=== PATIENT | male | born 1950 | race Caucasian/White ===

== ENCOUNTER 2016-08-09 19:28 | Emergency (ER) | payer SELFPAY ==
[2016-08-09 21:12] LABS: BASO % 0.4 % (0.0-2.0); EOS # 0.2 K/uL (0.0-0.7); EOS % 2.4 % (0.0-4.0); HEMATOCRIT 45.4 % (35.0-51.0); LYMPH # 1.9 K/uL (1.0-4.3); LYMPH % 29.5 % (20.0-40.0); MEAN CELL VOLUME 89.7 fL (80.0-94.0); MEAN CORPUSCULAR HEMOGLOBIN 29.1 pg (27.0-31.0); MEAN CORPUSCULAR HGB CONC 32.4 g/dL (33.0-37.0); MEAN PLATELET VOLUME 9.1 fL (7.2-11.7); MONO # 0.9 K/uL (0.0-0.8); MONO % 13.5 % (0.0-10.0); RED CELL DISTRIBUTION WIDTH 14.7 % (11.5-14.5); WHITE BLOOD COUNT 6.6 K/uL (4.8-10.8)
[2016-08-09 21:24] LABS: CHLORIDE 101 mmol/L (98-107); SODIUM 139 mmol/L (132-148)
[2016-08-09 21:25] LABS: POTASSIUM 4.4 mmol/L (3.6-5.2)
[2016-08-09 21:27] LABS: ALB/GLOB RATIO 1.2 (1.0-2.1); ALKALINE PHOSPHATASE 50 U/L (38-126); AST/SGOT 29 U/L (17-59); BILIRUBIN,TOTAL 0.5 mg/dL (0.2-1.3); BLOOD UREA NITROGEN 18 mg/dL (9-20); CARBON DIOXIDE 25 mmol/L (22-30); GFR AFRICAN-AMERICAN > 60; TOTAL PROTEIN 7.2 g/dL (6.3-8.3)
[2016-08-09 21:28] LABS: ALT/SGPT 28 U/L (21-72); CALCIUM 8.7 mg/dl (8.6-10.4); GLUCOSE,RANDOM 90 mg/dL (75-110)
--- NOTE | 2016-08-09 21:30 | C.PDOC ---
History Of Present Illness 66 year old patient, with a past medical history of hiatal hernia, hypertension , anxiety, and sleep apnea, presents to the emergency department complaining of chest pain for the past few days. Patient states the pain is lateral to the anterior chest wall. Patient denies cough, pain on taking a deep breath, sweats , light headedness, palpations, numbness, weakness, nausea, vomiting, or abdominal pain. Time Seen by Provider: 08/09/16 20:48 Chief Complaint (Nursing): Chest Pain History Per: Patient History/Exam Limitations: no limitations Onset/Duration Of Symptoms: Days (few) Current Symptoms Are (Timing): Still Present Context: Other Severity: Mild Pain Scale Rating Of: 3 Quality: "Pain" Exacerbating Factors: None Alleviating Factors: None Recent travel outside of the [place]: No Past Medical History Reviewed: Historical Data, Nursing Documentation, Vital Signs Vital Signs: Last Vital Signs Temp 98.2 F 08/09/16 19:44 Pulse 60 08/09/16 20:26 Resp 20 08/09/16 19:44 BP 135/86 08/09/16 19:44 Pulse Ox 95 08/09/16 21:47 - Medical History PMH: Anxiety, Hiatal Hernia, HTN, Sleep Apnea Family History: States: Unknown Family Hx - Social History Hx Tobacco Use: No Hx Alcohol Use: No Hx Substance Use: No - Immunization History Hx Tetanus Toxoid Vaccination: No Hx Influenza Vaccination: No Hx Pneumococcal Vaccination: No Review Of Systems Except As Marked, All Systems Reviewed And Found Negative. Constitutional: Negative for: Sweats Cardiovascular: Positive for: Chest Pain. Negative for: Palpitations, Light Headedness Respiratory: Negative for: Cough, Shortness of Breath Gastrointestinal: Negative for: Nausea, Vomiting, Abdominal Pain Neurological: Negative for: Weakness, Numbness Physical Exam - Physical Exam Appears: Non-toxic, No Acute Distress Skin: Warm, Dry Head: Atraumatic, Normacephalic Eye(s): bilateral: Normal Inspection, EOMI Neck: Normal ROM, Supple Chest: Symmetrical, Tenderness (to chest wall on palpation) Cardiovascular: Rhythm Regular Respiratory: Normal Breath Sounds, No Rales, No Rhonchi, No Wheezing Gastrointestinal/Abdominal: Soft, No Tenderness Back: Normal Inspection, No CVA Tenderness Extremity: Normal ROM Neurological/Psych: Oriented x3, Normal Speech, Normal Cognition Gait: Steady ED Course And Treatment - Laboratory Results Result Diagrams: 08/09/16 21:10 08/09/16 21:10 ECG: Interpreted By Me, Viewed By Me ECG Rhythm: Sinus Bradycardia ECG Interpretation: No Acute Changes Interpretation Of ECG: normal tracings Rate From EC (bpm) O2 Sat by Pulse Oximetry: 95 (RA) Pulse Ox Interpretation: Normal - Radiology CXR: Interpreted by Me, Viewed By Me CXR Interpretation: Yes: No Acute Disease, Other (normal CXR). No: Infiltrates , Cardiomegaly Progress Note: Plan: -EKG. -Labs. -Chest XR. -Toradol Disposition Counseled Patient/Family Regarding: Diagnosis - Disposition Referrals: [facility] at [facility] [Outside] Disposition: HOME/ ROUTINE Disposition Time: 21:48 Condition: STABLE Prescriptions: Naproxen [Naprosyn Tab] 375 mg PO TIDPC #20 tab Instructions: Chest Wall Pain (ED) Forms: Gen Discharge Inst Pashto Print Language: PORTUGUESE - POA Present On Arrival: None - Clinical Impression Clinical Impression: Chest wall pain - Scribe Statement The provider has reviewed the documentation as recorded by the Scribtevin Landa Provider Attestation: All medical record entries made by the Scribe were at my direction and personally dictated by me. I have reviewed the chart and agree that the record accurately reflects my personal performance of the history, physical exam, medical decision making, and the department course for this patient. I have also personally directed, reviewed, and agree with the discharge instructions and disposition.
[2016-08-09 22:09] VITALS: BP 130/80; PULSE 80; RESP 14; TEMP 98; O2SAT 98
--- NOTE | 2016-08-10 11:09 | RAD ---
HISTORY: chest pain COMPARISON: Comparison chest dated 05/15/16 TECHNIQUE: Chest PA and lateral FINDINGS: LUNGS: Mild bibasilar atelectasis left greater than right. Minimal left apical pleural thickening. . PLEURA: No significant pleural effusion identified. No pneumothorax apparent. Mild left apical CARDIOVASCULAR: Heart size normal. OSSEOUS STRUCTURES: Re- demonstrated is a small sclerotic a elliptical shaped density within the left posterior 4th rib unchanged. VISUALIZED UPPER ABDOMEN: Normal. OTHER FINDINGS: None. IMPRESSION: Mild left basilar atelectasis left greater than right
--- NOTE | 2016-08-12 07:59 | CARD ---
APPROVED REPORT EKG Measurement Heart [id number] CT [id number] <Conclusion> Sinus bradycardia Possible Left atrial enlargement Borderline ECG
== END 2016-08-09 22:09 | disposition home or self-care (01) ==
LOC: C.ER 19:28
DX: R07.89 Other chest pain (principal)
CPT/HCPCS: 71020; 80053; 84484; 85025; 85378; 96374; 99283; J1885

== ENCOUNTER 2017-02-08 06:33 | Emergency (ER) | payer MEDICAID ==
--- NOTE | 2017-02-08 07:33 | C.PDOC ---
History Of Present Illness Patient is a 66 year old male, with past medical history of borderline diabetes , presents to Emergency Department for evaluation of sudden onset of bilateral hip pain last night. Pt states that he was walking outside with his yesterday, when he suddenly felt a sharp pain in his hips. Denies any heavy lifting, significant exertion, bending, twisting, injury, or trauma. Pt notes that pain has been constant, dull, and non-radiating since last night. Notes that pain is 6/10 when sitting, and 10/10 when moving, or standing. Otherwise, patient denies any fever, chills, nausea, vomiting, diarrhea, abdominal pain, dysuria, hematuria, bowel/urine incontinence, or any other associated symptoms at this time. Pt denies history of kidney stones in the past. 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 Time Seen by Provider: 02/08/17 07:08 Chief Complaint (Nursing): Male Genitourinary History Per: Patient History/Exam Limitations: no limitations Onset/Duration Of Symptoms: Days (1), Sudden Onset, Persistent Current Symptoms Are (Timing): Still Present Quality Of Discomfort: Dull Associated Symptoms: denies: Fever, Chills, Nausea, Vomiting, Diarrhea, Loss Of Appetite, Chest Pain, Constipation, Urinary Symptoms Alleviating Factors: None Recent travel outside of the [place]: No Additional History Per: Patient Past Medical History Reviewed: Historical Data, Nursing Documentation, Vital Signs Vital Signs: Last Vital Signs Temp 97.5 F L 02/08/17 10:24 Pulse 64 02/08/17 10:24 Resp 18 02/08/17 10:24 BP 96/53 L 02/08/17 10:24 Pulse Ox 94 L 02/08/17 10:24 - Medical History PMH: Anxiety, Hiatal Hernia, HTN, Sleep Apnea Family History: States: Unknown Family Hx - Social History Hx Tobacco Use: No Hx Alcohol Use: No Hx Substance Use: No - Immunization History Hx Tetanus Toxoid Vaccination: No Hx Influenza Vaccination: No Hx Pneumococcal Vaccination: No Review Of Systems Except As Marked, All Systems Reviewed And Found Negative. Constitutional: Negative for: Fever, Chills Cardiovascular: Negative for: Chest Pain, Palpitations Respiratory: Negative for: Cough, Shortness of Breath Gastrointestinal: Negative for: Nausea, Vomiting, Abdominal Pain, Diarrhea, Constipation Genitourinary: Negative for: Dysuria, Frequency, Incontinence, Hematuria, Penile Discharge Musculoskeletal: Positive for: Other (bilateral hip pain). Negative for: Neck Pain Skin: Negative for: Rash, Bruising Neurological: Negative for: Weakness, Numbness, Headache, Dizziness Physical Exam - Physical Exam Appears: Non-toxic, No Acute Distress, Other (Visibly in pain when moving or standing) Skin: Normal Color, Warm, Dry, No Rash Head: Atraumatic, Normacephalic Eye(s): bilateral: Normal Inspection, EOMI Oral Mucosa: Moist Neck: Normal ROM, Supple Chest: Symmetrical Cardiovascular: Rhythm Regular, No Murmur Respiratory: No Accessory Muscle Use, No Rales, No Rhonchi, No Wheezing Gastrointestinal/Abdominal: Soft, No Tenderness, Other (obese abdomen) Back: No CVA Tenderness, No Vertebral Tenderness, No Paraspinal Tenderness Extremity: Normal ROM, No Tenderness, No Pedal Edema, Capillary Refill (<2 sec.) , No Deformity Extremity: Bilateral: Atraumatic, Hips Non-Tender, Normal Color And Temperature , Pelvis-Stable Neurological/Psych: Oriented x3, Normal Speech, Normal Cognition Gait: Steady ED Course And Treatment O2 Sat by Pulse Oximetry: 98 (on RA) Pulse Ox Interpretation: Normal Medical Decision Making Medical Decision Making: Patient was given Motrin, Tylenol, and Valium. On reassessment, patient reports feeling better. No significant distress. Still with some pain , but sleeping comfortably. Disposition Counseled Patient/Family Regarding: Diagnosis, Need For Followup, Rx Given - Disposition Disposition: HOME/ ROUTINE Disposition Time: 11:01 Condition: STABLE Additional Instructions: Rest, take pain meds 3 times a day. Follow up with your doctor, return to the Emergency Department with any further concerns. Prescriptions: diaZEpam [Valium] 5 mg PO TID #15 tab Ibuprofen [Motrin] 600 mg PO TID #15 tab traMADol/Acetaminophen [Ultracet 37.5/325 mg] 1 tab PO TID PRN #15 tab PRN Reason: pain Instructions: Acute Low Back Pain (ED) Forms: [facility] (Hungarian) - POA Present On Arrival: None - Clinical Impression Clinical Impression: Musculoskeletal back pain - Scribe Statement The provider has reviewed the documentation as recorded by the Scribe Deedee Landa All medical record entries made by the Scribe were at my direction and personally dictated by me. I have reviewed the chart and agree that the record accurately reflects my personal performance of the history, physical exam, medical decision making, and the department course for this patient. I have also personally directed, reviewed, and agree with the discharge instructions and disposition.
[2017-02-08 09:52] LABS: URINE BILIRUBIN NEGATIVE (NEGATIVE); URINE BLOOD NEGATIVE (NEGATIVE); URINE COLOR Yellow (YELLOW); URINE GLUCOSE (UA) NORMAL (Normal); URINE KETONE NEGATIVE (NEGATIVE); URINE LEUKOCYTE ESTERASE NEG Leu/uL (Negative); URINE PROTEIN NEGATIVE (NEGATIVE); URINE UROBILINOGEN NORMAL mg/dL (0.2-1.0)
[2017-02-08 10:25] VITALS: BP 96/53; PULSE 64; RESP 18; TEMP 97.5
[2017-02-08 11:04] VITALS: O2SAT 98
== END 2017-02-08 11:24 | disposition home or self-care (01) ==
LOC: C.ER 06:33
DX: M54.9 Dorsalgia, unspecified (principal); I10 Essential (primary) hypertension

== ENCOUNTER 2017-09-13 00:57 | Emergency (ER) | payer SELFPAY ==
--- NOTE | 2017-09-13 01:18 | C.PDOC ---
History Of Present Illness 67yo male, presents to ED for evaluation of right sided abdominal pain since 1300 yesterday. Patient states the pain was initially in his mid abdomen and now radiated to his right abdomen. He denies any associated nausea, vomiting, diarrhea. He reports a tactile fever but denies any chills, chest pain, shortness of breath. Patient did not take any medication for his symptoms. He has no other medical complaints. Time Seen by Provider: 09/13/17 01:17 Chief Complaint (Nursing): Abdominal Pain History Per: Patient History/Exam Limitations: no limitations Onset/Duration Of Symptoms: Hrs Current Symptoms Are (Timing): Still Present Location Of Pain/Discomfort: RUQ Quality Of Discomfort: "Pain" Associated Symptoms: Fever. denies: Chills, Nausea, Vomiting, Diarrhea, Back Pain, Urinary Symptoms Past Medical History Reviewed: Historical Data, Nursing Documentation, Vital Signs Vital Signs: Last Vital Signs Temp 100.1 F H 09/13/17 04:15 Pulse 105 H 09/13/17 03:55 Resp 20 09/13/17 03:55 BP 151/91 H 09/13/17 03:55 Pulse Ox 95 09/13/17 03:55 - Medical History PMH: Anxiety, Hiatal Hernia, HTN, Sleep Apnea Denies: Chronic Kidney Disease Surgical History: No Surg Hx Family History: States: No Known Family Hx, Unknown Family Hx - Social History Hx Tobacco Use: No Hx Alcohol Use: No Hx Substance Use: No - Immunization History Hx Tetanus Toxoid Vaccination: No Hx Influenza Vaccination: No Hx Pneumococcal Vaccination: No Review Of Systems Except As Marked, All Systems Reviewed And Found Negative. Constitutional: Positive for: Fever (tactile) Cardiovascular: Negative for: Chest Pain Respiratory: Negative for: Shortness of Breath Gastrointestinal: Positive for: Abdominal Pain. Negative for: Nausea, Vomiting , Diarrhea Physical Exam - Physical Exam Appears: Non-toxic, No Acute Distress Skin: Normal Color, Warm, Dry Head: Atraumatic, Normacephalic Eye(s): bilateral: PERRL, EOMI, Other (anicteric sclera, pink conjunctiva) Nose: Normal Oral Mucosa: Moist Neck: Normal ROM, Supple Chest: Symmetrical Cardiovascular: Rhythm Regular Respiratory: Normal Breath Sounds Gastrointestinal/Abdominal: Soft, Tenderness (right mid-abdomne, under right costal margin. (-) Scott's sign), No Mass, No Guarding, No Rebound Back: Normal Inspection Extremity: Normal ROM, No Pedal Edema Pulses: Left Dorsalis Pedis: Normal, Right Dorsalis Pedis: Normal Neurological/Psych: Oriented x3 ED Course And Treatment - Laboratory Results Result Diagrams: 09/13/17 01:35 09/13/17 01:35 O2 Sat by Pulse Oximetry: 94 Medical Decision Making Medical Decision Making: Impression: Abdominal pain Plan: -- US Galbladder -- Labs -- Morphine 4mg IV -- IV Fluids Time: 0220 Labs reviewed and with normal white count with slight left shift. Electrolyte levels within normal limits, mild hyperglycemia noted. Time: 0331 US Galbladder FINDINGS: Artifacts: Limited due to bowel gas shadowing. Limited due to shadowing from the ribs. Liver: The liver measures 14.5 cm. Limited evaluation of the liver due to shadowing. There is hepatic pedal flow in the portal vein. Gallbladder: Partially contracted gallbladder the 2 mm gallbladder wall. No gallstones.There was no right upper quadrant tenderness during the sonographic examination. Correlation with patient's pain medication status is recommended. Common bile duct: Normal common bile duct measuring 3 mm. Pancreas: The pancreas is not well-seen. Echogenic pancreas. Right kidney: The right kidney measures 15.2 x 6.4 x 6.2 cm. No stones. No hydronephrosis. Aorta: The proximal aorta measures 2.5 cm. Limited evaluation due to shadowing. Inferior vena cava: IVC is seen. IMPRESSION: No acute findings. Time: 034 [employer] legal recruiter used and results explained to patient. Patient stable for discharge home, will be given prescription for pantoprazole and instructions to follow up with his PCP. Disposition - Disposition Referrals: [facility] at [facility] [Outside] Disposition: HOME/ ROUTINE Disposition Time: 05:12 Condition: GOOD Prescriptions: Pantoprazole Sodium [Protonix] 40 mg PO DAILY #14 ect Instructions: Acid Reflux (Gastroesophageal Reflux Disease), Adult (DC), Acute Abdomen (Belly Pain), Adult (DC) Forms: [facility] (Croatian) Print Language: ITALIAN - Clinical Impression Clinical Impression: Abdominal pain - Scribe Statement The provider has reviewed the documentation as recorded by the Scribe (Casandra Zarate) Provider Attestation: All medical record entries made by the Scribe were at my direction and personally dictated by me. I have reviewed the chart and agree that the record accurately reflects my personal performance of the history, physical exam, medical decision making, and the department course for this patient. I have also personally directed, reviewed, and agree with the discharge instructions and disposition.
[2017-09-13] MEDS ORDERED: Sodium Chloride 0.9% 1,000 ML IV ONE (01:20)
[2017-09-13] MEDS ORDERED: Morphine 4 MG/ML VIAL ONE (01:33)
[2017-09-13] MEDS ORDERED: Sodium Chloride 0.9% 1,000 ML ONE (01:33)
[2017-09-13 01:40] LABS: BASO % 0.4 % (0.0-2.0); EOS # 0.2 K/uL (0.0-0.7); EOS % 1.6 % (0.0-4.0); HEMOGLOBIN 15.9 g/dL (12.0-18.0); LYMPH # 0.9 K/uL (1.0-4.3); LYMPH % 9.6 % (20.0-40.0); MEAN CELL VOLUME 90.9 fL (80.0-94.0); MEAN CORPUSCULAR HEMOGLOBIN 30.6 pg (27.0-31.0); MEAN CORPUSCULAR HGB CONC 33.7 g/dL (33.0-37.0); MEAN PLATELET VOLUME 9.3 fL (7.2-11.7); MONO # 0.8 K/uL (0.0-0.8); MONO % 7.7 % (0.0-10.0); NEUT # 7.9 K/uL (1.8-7.0); NEUT % 80.7 % (50.0-75.0); PLATELET COUNT 175 K/uL (130-400); RBC 5.21 Mil/uL (4.40-5.90); RED CELL DISTRIBUTION WIDTH 13.9 % (11.5-14.5); WHITE BLOOD COUNT 9.8 K/uL (4.8-10.8)
[2017-09-13 01:57] LABS: ALB/GLOB RATIO 1.1 (1.0-2.1); ALBUMIN 4.4 g/dL (3.5-5.0); CALCIUM 9.3 mg/dl (8.6-10.4); GFR AFRICAN-AMERICAN > 60; GFR NON-AFRICAN AMERICAN > 60; LIPASE 51 U/L (23-300)
[2017-09-13 02:20] LABS: ALT/SGPT 31 U/L (21-72); AST/SGOT 33 U/L (17-59); BLOOD UREA NITROGEN 20 mg/dL (9-20)
[2017-09-13 02:37] LABS: SQUAMOUS EPITHIAL < 1 /hpf (0-5); URINE BILIRUBIN NEGATIVE (NEGATIVE); URINE BLOOD NEGATIVE (NEGATIVE); URINE CLARITY Clear (Clear); URINE COLOR Yellow (YELLOW); URINE GLUCOSE (UA) NORMAL (Normal); URINE LEUKOCYTE ESTERASE NEG Leu/uL (Negative); URINE PROTEIN NEGATIVE (NEGATIVE); URINE UROBILINOGEN NORMAL mg/dL (0.2-1.0)
[2017-09-13 03:08] LABS: BANDS 1 % (0-2); LYMPHOCYTE 11 % (20-40); MONOCYTE 4 % (0-10); NEUTROPHIL 83 % (50-75); PLATELET ESTIMATE NORMAL (NORMAL); REACTIVE LYMPHOCYTES 1 % (0-0); TOTAL CELLS COUNTED 100
[2017-09-13 03:09] LABS: TOXIC GRANULATION PRESENT
--- NOTE | 2017-09-13 03:32 | US ---
EXAM: US Abdomen Limited, Right Upper Quadrant CLINICAL HISTORY: 67 years old, male; Pain; Abdominal pain; Epigastric TECHNIQUE: Real-time ultrasound of the right upper quadrant with image documentation. COMPARISON: No relevant prior studies available. FINDINGS: Artifacts: Limited due to bowel gas shadowing. Limited due to shadowing from the ribs. Liver: The liver measures 14.5 cm. Limited evaluation of the liver due to shadowing. There is hepatic pedal flow in the portal vein. Gallbladder: Partially contracted gallbladder the 2 mm gallbladder wall. No gallstones.There was no right upper quadrant tenderness during the sonographic examination. Correlation with patient's pain medication status is recommended. Common bile duct: Normal common bile duct measuring 3 mm. Pancreas: The pancreas is not well-seen. Echogenic pancreas. Right kidney: The right kidney measures 15.2 x 6.4 x 6.2 cm. No stones. No hydronephrosis. Aorta: The proximal aorta measures 2.5 cm. Limited evaluation due to shadowing. Inferior vena cava: IVC is seen. IMPRESSION: No acute findings.
[2017-09-13 04:08] VITALS: BP 151/91; PULSE 105; RESP 20; TEMP 100.1
[2017-09-13 05:13] VITALS: O2SAT 94
== END 2017-09-13 04:32 | disposition home or self-care (01) ==
LOC: C.ER 00:57
DX: R10.13 Epigastric pain (principal); I10 Essential (primary) hypertension
CPT/HCPCS: 76705; 80053; 81001; 83690; 85025; 96361; 96374; 96375; 99285; C9113; J2270; J7040

== ENCOUNTER 2018-04-10 19:26 | Emergency (ER) | payer SELFPAY ==
[2018-04-10 19:39] VITALS: RESP 18; O2SAT 95
--- NOTE | 2018-04-10 19:48 | C.PDOC ---
History Of Present Illness 67 year old male with a PMHx hiatal hernia, htn, anxiety presents to the emergency department with complaints of abdominal which started 1 hour prior. Patient describes the pain as sharp and stabbing, LLQ, without radiation. No trauma. No RLQ pain. First time occurence. No abnl BM, last BM was yesterday. He believes he might have excess "GAS" in his stomach. He denies nausea, vomiting, constipation, diarrhea, and dysuria. Time Seen by Provider: 04/10/18 19:34 Chief Complaint (Nursing): Abdominal Pain History Per: Patient History/Exam Limitations: no limitations Onset/Duration Of Symptoms: Hrs (1) Current Symptoms Are (Timing): Still Present Location Of Pain/Discomfort: Other (umbilical) Quality Of Discomfort: Sharp, Stabbing, "Pain" Associated Symptoms: denies: Nausea, Vomiting, Diarrhea, Back Pain, Chest Pain, Constipation, Urinary Symptoms Past Medical History Reviewed: Historical Data, Nursing Documentation, Vital Signs Vital Signs: Last Vital Signs Temp 98.3 F 04/10/18 19:34 Pulse Resp 18 04/10/18 19:34 BP 179/98 H 04/10/18 19:34 Pulse Ox 95 04/10/18 19:34 - Medical History PMH: Anxiety, Hiatal Hernia, HTN, Sleep Apnea Denies: Chronic Kidney Disease Surgical History: No Surg Hx Family History: States: No Known Family Hx - Social History Hx Tobacco Use: No Hx Alcohol Use: No Hx Substance Use: No - Immunization History Hx Tetanus Toxoid Vaccination: No Hx Influenza Vaccination: No Hx Pneumococcal Vaccination: No Review Of Systems Except As Marked, All Systems Reviewed And Found Negative. Constitutional: Negative for: Fever, Chills, Malaise, Weight loss Eyes: Negative for: Pain ENT: Negative for: Ear Pain, Ear Discharge, Nose Pain, Nose Congestion, Mouth Pain, Mouth Swelling Cardiovascular: Negative for: Chest Pain, Palpitations Respiratory: Negative for: Cough, SOB with Excertion, Pleuritic Pain Gastrointestinal: Positive for: Abdominal Pain. Negative for: Nausea, Vomiting, Diarrhea, Constipation, Melena, Hematochezia, Hematemesis Genitourinary: Negative for: Dysuria Musculoskeletal: Negative for: Arm Pain, Back Pain Skin: Negative for: Rash Neurological: Negative for: Weakness, Numbness, Headache Psych: Negative for: Anxiety Physical Exam - Physical Exam Appears: Non-toxic, In Acute Distress Skin: Warm, Dry Head: Atraumatic, Normacephalic Eye(s): bilateral: Normal Inspection, PERRL, EOMI Nose: Normal Oral Mucosa: Moist Tongue: Normal Appearing Lips: Normal Appearing Gingiva: Normal Appearing Throat: Normal, No Erythema, No Exudate, No Drooling Neck: Normal, No Midline Cervical Tenderness, Supple, Other (no meningeal signs) Chest: Symmetrical, No Tenderness Cardiovascular: Rhythm Regular, No Murmur Respiratory: No Rales, No Rhonchi, No Wheezing Gastrointestinal/Abdominal: Soft, Tenderness (umbilical), No Guarding, No Rebound Back: Normal Inspection, No CVA Tenderness Extremity: Normal ROM Neurological/Psych: Oriented x3, Normal Speech, Normal Cognition ED Course And Treatment - Laboratory Results Result Diagrams: 04/10/18 20:18 04/10/18 20:18 O2 Sat by Pulse Oximetry: 95 (RA) Pulse Ox Interpretation: Normal Medical Decision Making Medical Decision Makin67 year old male w/ hx of hiatal hernia, anxiety and HTN p/w abdominal pain. LLQ, no peritoneal signs w/ out CVAT. NO urinary complaints or rashes. Given abd pain, will seek CT for ?Diverticulitis. No N/V. No CP or SOB. Plan: CT Abdomen and Pelvis CMP Lipase CBC Glucose POC Morphine 4mg IVP Maalox 30ml PO NaCl IV Fluids Urinalysis 2150: Per [place]: Acute Appdx: Appreciate consult w/ vice president global advertising sales: to see pt. Pt NPO [id number] appreciate ocnuslt w/ advanced manufacturing vice president and Dr. Lemus directly: Clear for d/c home, no indication for admission at this time. Pt can return to ED if pain returns or follow up in clinic. Given CT findings i recommended pt stay: however pt seeks to sign out AMA. I informed patient that he could potentially or be permanently disabled given appendicits. Pt notes that he will return if the pain worsens and that given the pain has resolved currently he feels he is safe to go home and will return if his appendix ruptures. I endorsed to patient that regardless of current pain status he could still or be permanently disabled if he decided to leave and the appendix ruptured. He notes that he feels safe to go home, understands the risks, and will return if need be. Given good capacity to understand risks of and or disability due to appendicits. Will rx w/ abx outpt and reccommend pt f/u and return to ED should he change his mind. Disposition - Disposition Referrals: [employer] [facility] [Outside] [facility] at [facility] [Outside] Hang Lemus MD [Staff Provider] - Disposition: AGAINST MEDICAL ADVICE Disposition Time: 23:15 Condition: GUARDED Additional Instructions: RETURN TO THIS ED WHEN YOU WANT TREATMENT. DO NOT DELAY Prescriptions: RX: Ciprofloxacin [Cipro] 500 mg PO BID #28 tab Metronidazole [Flagyl] 500 mg PO TID 14 Days tablet Instructions: Appendicitis in Adults Forms: [employer] [facility] (Danish) - Clinical Impression Clinical Impression: Appendicitis - Scribe Statement The provider has reviewed the documentation as recorded by the Scribe (Jossue Bellamy) Provider Attestation: All medical record entries made by the Scribe were at my direction and personally dictated by me. I have reviewed the chart and agree that the record accurately reflects my personal performance of the history, physical exam, medical decision making, and the department course for this patient. I have also personally directed, reviewed, and agree with the discharge instructions and disposition.
[2018-04-10] MEDS ORDERED: Sodium Chloride 0.9% 1,000 ML IV SCH (20:15)
[2018-04-10] MEDS ORDERED: Sodium Chloride 0.9% 1,000 ML ONE (20:20)
[2018-04-10] MEDS ORDERED: Morphine 4 MG/ML VIAL ONE (20:21)
[2018-04-10 20:24] LABS: BASO % 0.3 % (0.0-2.0); EOS # 0.1 K/uL (0.0-0.7); EOS % 1.9 % (0.0-4.0); HEMOGLOBIN 14.9 g/dL (12.0-18.0); LYMPH # 2.2 K/uL (1.0-4.3); LYMPH % 28.9 % (20.0-40.0); MEAN CELL VOLUME 90.2 fL (80.0-94.0); MEAN CORPUSCULAR HGB CONC 33.3 g/dL (33.0-37.0); MEAN PLATELET VOLUME 9.1 fL (7.2-11.7); MONO # 0.9 K/uL (0.0-0.8); MONO % 12.1 % (0.0-10.0); NEUT # 4.3 K/uL (1.8-7.0); NEUT % 56.8 % (50.0-75.0); NRBC % 0.1 % (0.0-2.0); RBC 4.98 Mil/uL (4.40-5.90); RED CELL DISTRIBUTION WIDTH 14.5 % (11.5-14.5); WHITE BLOOD COUNT 7.6 K/uL (4.8-10.8)
[2018-04-10] MEDS ORDERED: Alum-Mag Hydrox-Simethicone Susp (30 mL) PO STA (20:32)
[2018-04-10 20:35] LABS: ALB/GLOB RATIO 1.3 (1.0-2.1); ALBUMIN 4.1 g/dL (3.5-5.0); ALT/SGPT 33 U/L (21-72); AST/SGOT 32 U/L (17-59); BLOOD UREA NITROGEN 21 mg/dL (9-20); GFR NON-AFRICAN AMERICAN > 60; LIPASE 41 U/L (23-300)
[2018-04-10] MEDS ORDERED: Alum-Mag Hydrox-Simethicone Susp (30 mL) ONE (20:39)
[2018-04-10] MEDS ORDERED: Iodixanol 320 MG/ML 100 ML BOTTLE IV ONE (21:01)
[2018-04-10 22:08] LABS: URINE BILIRUBIN NEGATIVE (NEGATIVE); URINE BLOOD NEGATIVE (NEGATIVE); URINE CLARITY Clear (Clear); URINE COLOR Yellow (YELLOW); URINE GLUCOSE (UA) NORMAL (Normal); URINE LEUKOCYTE ESTERASE TRACE Leu/uL (Negative); URINE PROTEIN NEGATIVE (NEGATIVE); URINE UROBILINOGEN NORMAL mg/dL (0.2-1.0)
--- NOTE | 2018-04-10 22:43 | CP.PCM.CON ---
History of Present Illness - History of Present Illness History of Present Illness: General Surgery Consult Note For Dr. Lemus This is a 67M with a PMH of HTN and cataracts. He reports that early this evening he developed an acute onset abdominal pain, which was relieved by passing flatus while in the CT scanner. He denies any fevers or chills at home. He denies any nausea or vomiting. He currently denies abdominal pain, he reports that he is moving his bowels normally. He reports that he has suffered from colitis in the past which has been significantly worse than this current episode. He reports that he does not want surgery. He denies any chest pain or SOB or any other concerning symptoms. PMH: HTN, Colitis PSH: Cataracts ALL: PCN Social: 40 pack years Review of Systems - Review of Systems Review of Systems: 12 point review of symptoms conducted and negative Past Patient History - Infectious Disease Hx of Infectious Diseases: None - Past Medical History & Family History Past Medical History?: Yes - Past Social History Smoking Status: Heavy Smoker > 10 Cigarettes Daily - CARDIAC Hx Hypertension: Yes - PULMONARY Hx Sleep Apnea: Yes - NEUROLOGICAL Hx Neurological Disorder: No - HEENT Hx HEENT Problems: Yes Hx Cataracts: Yes - RENAL Hx Chronic Kidney Disease: No - ENDOCRINE/METABOLIC Hx Endocrine Disorders: Yes Hx Diabetes Mellitus Type 2: Yes (diet controlled) - HEMATOLOGICAL/ONCOLOGICAL Hx Blood Disorders: No - INTEGUMENTARY Hx Dermatological Problems: Yes Other/Comment: bilateral feet: dusky, dry, flakey skin. - MUSCULOSKELETAL/RHEUMATOLOGICAL Hx Musculoskeletal Disorders: Yes Hx Falls: No Other/Comment: Bilateral lower extremity ROM weakness - GASTROINTESTINAL Other/Comment: Inguinal hernia - GENITOURINARY/GYNECOLOGICAL Hx Genitourinary Disorders: No - PSYCHIATRIC Hx Anxiety: Yes Hx Substance Use: No - SURGICAL HISTORY Hx Surgeries: No - ANESTHESIA Hx Anesthesia: Yes Hx Anesthesia Reactions: Yes (allergic to general anesthesia) Meds Allergies/Adverse Reactions: Allergies Allergy/AdvReac Type Severity Reaction Status Date / Time Penicillins Allergy Mild ANAPHYLAXIS Verified 04/10/18 19:39 general anesthesia Allergy Mild ANAPHYLAXIS Uncoded 04/10/18 19:39 - Medications Medications: Current Medications Sodium Chloride (Sodium Chloride 0.9%) 1,000 mls @ 100 mls/hr IV .Q10H TABATHA Last Admin: 04/10/18 20:24 Dose: 100 mls/hr Physical Exam - Constitutional Appears: Non-toxic, No Acute Distress - Head Exam Head Exam: ATRAUMATIC, NORMOCEPHALIC - Eye Exam Eye Exam: EOMI, Normal appearance - ENT Exam ENT Exam: Mucous Membranes Moist - Respiratory Exam Respiratory Exam: NORMAL BREATHING PATTERN - Cardiovascular Exam Cardiovascular Exam: +S1, +S2 - GI/Abdominal Exam GI & Abdominal Exam: Soft - Neurological Exam Neurological exam: Alert, Oriented x3 - Psychiatric Exam Psychiatric exam: Normal Affect, Normal Mood - Skin Skin Exam: Dry, Intact Results - Vital Signs Recent Vital Signs: Last Vital Signs Temp 98.3 F 04/10/18 19:34 Pulse 54 L 04/10/18 19:34 Resp 18 04/10/18 19:34 BP 179/98 H 04/10/18 19:34 Pulse Ox 95 04/10/18 22:03 - Labs Result Diagrams: 04/10/18 20:18 04/10/18 20:18 Labs: Laboratory Results - last 24 hr 04/10/18 04/10/18 04/10/18 19:41 20:18 20:18 WBC 7.6 RBC 4.98 Hgb 14.9 Hct 44.9 MCV 90.2 MCH 30.0 MCHC 33.3 RDW 14.5 Plt Count 196 MPV 9.1 Neut % (Auto) 56.8 Lymph % (Auto) 28.9 [place] % (Auto) 12.1 H Eos % (Auto) 1.9 Baso % (Auto) 0.3 Neut # (Auto) 4.3 Lymph # (Auto) 2.2 [place] # (Auto) 0.9 H Eos # (Auto) 0.1 Baso # (Auto) 0.0 Sodium 139 Potassium 4.3 Chloride 103 Carbon Dioxide 30 Anion Gap 11 BUN 21 H Creatinine 0.9 Est GFR ( Amer) > 60 Est GFR (Non-Af Amer) > 60 POC Glucose (mg/dL) 121 H Random Glucose 114 H Calcium 9.0 Total Bilirubin 0.5 AST 32 ALT 33 Alkaline Phosphatase 52 Total Protein 7.2 Albumin 4.1 Globulin 3.1 Albumin/Globulin Ratio 1.3 Lipase 41 Urine Color Urine Clarity Urine pH Ur Specific [place] Urine Protein Urine Glucose (UA) Urine Ketones Urine Blood Urine Nitrate Urine Bilirubin Urine Urobilinogen Ur Leukocyte Esterase Urine WBC (Auto) Urine RBC (Auto) 04/10/18 21:40 WBC RBC Hgb Hct MCV MCH MCHC RDW Plt Count MPV Neut % (Auto) Lymph % (Auto) [place] % (Auto) Eos % (Auto) Baso % (Auto) Neut # (Auto) Lymph # (Auto) [place] # (Auto) Eos # (Auto) Baso # (Auto) Sodium Potassium Chloride Carbon Dioxide Anion Gap BUN Creatinine Est GFR ( Amer) Est GFR (Non-Af Amer) POC Glucose (mg/dL) Random Glucose Calcium Total Bilirubin AST ALT Alkaline Phosphatase Total Protein Albumin Globulin Albumin/Globulin Ratio Lipase Urine Color Yellow Urine Clarity Clear Urine pH 6.0 Ur Specific [place] 1.023 Urine Protein Negative Urine Glucose (UA) Normal Urine Ketones Negative Urine Blood Negative Urine Nitrate Negative Urine Bilirubin Negative Urine Urobilinogen Normal Ur Leukocyte Esterase Trace Urine WBC (Auto) < 1 Urine RBC (Auto) < 1 Assessment & Plan - Assessment and Plan (Free Text) Assessment: 67M with resolved abdominal pain CT scan questionable for early appendicitis Recommend discharge home. Discussed with the patient importance of returning if he develops any concerning or worsening symptoms. D/W Dr. Allan Yeung PGY3
[2018-04-10 23:14] VITALS: BP 133/83; PULSE 74; TEMP 98.5
--- NOTE | 2018-04-11 10:12 | CT ---
Date of service: 04/10/2018 PROCEDURE: CT abdomen and pelvis with intravenous contrast. HISTORY: Periumbilical pain COMPARISON: 06/14/2016 TECHNIQUE: Multiple contiguous axial images were performed through the abdomen and pelvis with the use of intravenous contrast. Subsequently, sagittal and coronal reformatted images were obtained. Radiation dose: Total exam DLP = 1352.7 mGy-cm. This CT exam was performed using one or more of the following dose reduction techniques: Automated exposure control, adjustment of the mA and/or kV according to patient size, and/or use of iterative reconstruction technique. FINDINGS: LOWER THORAX: Mild atelectasis at the lung bases. LIVER: Fatty infiltration of the liver. GALLBLADDER AND BILE DUCTS: Unremarkable. PANCREAS: Unremarkable. No gross lesion or ductal dilatation. SPLEEN: 5 millimeters splenic hypodensity, too small to adequately characterize. Punctate splenic calcification. ADRENALS: Unremarkable. No mass. KIDNEYS AND URETERS: Unremarkable. No hydronephrosis. No solid mass. Left kidney not visualized, clinical correlation. VASCULATURE: Unremarkable. No aortic aneurysm. Aortic atherosclerotic calcification or mural plaque present. BOWEL: Unremarkable. No obstruction. No gross mural thickening. APPENDIX: Thickened appendix measuring up to 1.1 centimeters in width with associated adjacent fluid and fat stranding concerning for acute appendicitis. PERITONEUM: Unremarkable. No free fluid. No free air. LYMPH NODES: Unremarkable. No enlarged lymph nodes. BLADDER: Unremarkable. REPRODUCTIVE: Unremarkable. BONES: Degenerative changes in the spine. 1.5 centimeters sclerotic foci in the right acetabulum of uncertain clinical etiology. This may represent a bone island. Clinical correlation. OTHER FINDINGS: Fat containing left inguinal hernia. IMPRESSION: Thickened appendix measuring up to 1.1 centimeters in width with associated adjacent fluid and fat stranding concerning for acute appendicitis. 1.5 centimeters sclerotic foci in the right acetabulum of uncertain clinical etiology. This may represent a bone island. Clinical correlation. Fat containing left inguinal hernia. Left kidney not visualized, clinical correlation. A preliminary report was generated at 10:06 p.m. on 04/10/[address] Pj Fam from [employer].
--- NOTE | 2018-04-11 12:17 | CARD ---
APPROVED REPORT Date of service: 04/10/2018 EKG Measurement Heart [id number] <Conclusion> Sinus bradycardia Otherwise normal ECG
== END 2018-04-10 23:26 | disposition left against medical advice (07) ==
LOC: C.ER 19:26
DX: R10.32 Left lower quadrant pain (principal)
CPT/HCPCS: 74177; 80053; 81001; 82948; 83690; 85025; 93005; 96374; 99285; J2270; J7030; Q9967

== ENCOUNTER 2018-04-28 07:09 | Emergency (ER) | payer SELFPAY ==
[2018-04-28 07:21] VITALS: O2SAT 98
[2018-04-28] MEDS ORDERED: Sodium Chloride 0.9% 1,000 ML IV STA (07:38)
--- NOTE | 2018-04-28 07:40 | C.PDOC ---
Time Seen by Provider: 04/28/18 07:29 Chief Complaint (Nursing): Abdominal Pain Past Medical History Vital Signs: Last Vital Signs Temp 98.2 F 04/28/18 07:15 Pulse 55 L 04/28/18 07:15 Resp 18 04/28/18 07:15 BP 135/86 04/28/18 07:15 Pulse Ox 98 04/28/18 07:15 - Medical History PMH: Anxiety, Hiatal Hernia, HTN, Sleep Apnea Denies: Chronic Kidney Disease Family History: States: Unknown Family Hx - Social History Hx Tobacco Use: No Hx Alcohol Use: No Hx Substance Use: No - Immunization History Hx Tetanus Toxoid Vaccination: No Hx Influenza Vaccination: No Hx Pneumococcal Vaccination: No ED Course And Treatment O2 Sat by Pulse Oximetry: 98 Disposition - Disposition Forms: [employer] (Andorran)
--- NOTE | 2018-04-28 07:40 | C.PDOC ---
History Of Present Illness 67 y/o male with history of Anxiety and HTN presents to ED with c/o left sided "sharp" abdominal pain intermittently since earlier this morning. Patient reports last bowel movement earlier today, normal. Patient denies fever, chills, dysuria, nausea, vomiting or any other complaints at this time. Time Seen by Provider: 04/28/18 07:29 Chief Complaint (Nursing): Abdominal Pain History Per: Patient History/Exam Limitations: no limitations Onset/Duration Of Symptoms: Hrs Current Symptoms Are (Timing): Still Present Location Of Pain/Discomfort: LLQ Past Medical History Reviewed: Historical Data, Nursing Documentation, Vital Signs Vital Signs: Last Vital Signs Temp 98.2 F 04/28/18 07:15 Pulse 55 L 04/28/18 07:15 Resp 18 04/28/18 07:15 BP 135/86 04/28/18 07:15 Pulse Ox 98 04/28/18 07:15 - Medical History PMH: Anxiety, Hiatal Hernia, HTN, Sleep Apnea Surgical History: No Surg Hx Family History: States: No Known Family Hx - Social History Hx Tobacco Use: No Hx Alcohol Use: No Hx Substance Use: No - Immunization History Hx Tetanus Toxoid Vaccination: No Hx Influenza Vaccination: No Hx Pneumococcal Vaccination: No Review Of Systems Except As Marked, All Systems Reviewed And Found Negative. Constitutional: Negative for: Fever, Chills Gastrointestinal: Positive for: Abdominal Pain. Negative for: Nausea, Vomiting, Diarrhea Genitourinary: Negative for: Dysuria, Hematuria Physical Exam - Physical Exam Additional Physical Exam Comments: Constitutional: No acute distress. Head: Normocephalic. Atraumatic. Eyes: PERRL. ENT: Moist mucous membranes. Neck: Supple. Cardiovascular: Regular rate. Radial pulse 2+ bilaterally. Chest: No tenderness. Respiratory: Clear to auscultation bilaterally. GI: Soft. LLQ tenderness with Guarding. No rebound Back: No CVA tenderness. Musculoskeletal: No tenderness or swelling of extremities. Skin: No rash. Neurologic: Alert, no focal deficit. ED Course And Treatment - Laboratory Results Result Diagrams: 04/28/18 08:13 04/28/18 08:13 O2 Sat by Pulse Oximetry: 98 (RA) Pulse Ox Interpretation: Normal Medical Decision Making Medical Decision Making: Plan: CT abd/pelvis w/ IV contrast, Blood work, UA ordered. Morphine, Zofran and IV fluids administered. FINDINGS: LOWER THORAX: There is dependent atelectasis in the lung bases. LIVER: Normal in size. Fatty liver homogeneous enhancement. No gross lesion or ductal dilatation. GALLBLADDER AND BILE DUCTS: Well distended. No calcified gallstones, wall thickening or pericholecystic fluid. PANCREAS: Normal in size with homogeneous enhancement. No gross lesion or ductal dilatation. SPLEEN: Normal in size and appearance. ADRENALS: No discrete nodule. KIDNEYS AND URETERS: The right kidney is normal l in size with homogeneous enhancement. No hydronephrosis. No solid mass. The left kidney is absent. VASCULATURE: No aortic aneurysm. BOWEL: Evaluation of the bowel is limited in the absence of oral contrast. The small bowel loops are normal in caliber. Scattered left colonic diverticulosis without CT evidence for acute diverticulitis. The colon is grossly normal in appearance. No bowel wall thickening or obstruction. APPENDIX: Normal appendix. PERITONEUM: No free fluid. No free air. LYMPH NODES: No enlarged lymph nodes. BLADDER: Well distended and normal in appearance. REPRODUCTIVE: The prostate gland is normal in size. BONES: No acute fracture. Within normal limits for the patient's age. Stable sclerotic focus in the right acetabulum statistically most compatible with a bone island OTHER FINDINGS: Small right fat containing inguinal hernia. Large left fat containing inguinal hernia. IMPRESSION: No acute abdominal or pelvic abnormality. Scattered left colonic diverticulosis without CT evidence for acute diverticulitis. Large left fat containing inguinal hernia. Fatty liver. Patient in no distress. Discharged home, f/u PMD, return to ED for worsening pain, fever, vomiting, dyspnea, or any other problem. Disposition - Disposition Disposition: HOME/ ROUTINE Disposition Time: 10:13 Condition: STABLE Prescriptions: Ibuprofen [Motrin] 1 tab PO Q6 #30 tab Instructions: Inguinal and Femoral (Groin) Hernias Forms: [employer] (Yi) - Clinical Impression Clinical Impression: Inguinal hernia, Abdominal pain - Scribe Statement The provider has reviewed the documentation as recorded by the Nena Talley All medical record entries made by the Minhibtevin were at my direction and personally dictated by me. I have reviewed the chart and agree that the record accurately reflects my personal performance of the history, physical exam, medical decision making, and the department course for this patient. I have also personally directed, reviewed, and agree with the discharge instructions and di sposition.
[2018-04-28] MEDS ORDERED: Morphine 4 MG/ML VIAL ONE (07:53)
[2018-04-28] MEDS ORDERED: Sodium Chloride 0.9% 1,000 ML ONE (07:53)
[2018-04-28 08:19] LABS: BASO # 0.1 K/uL (0.0-0.2); BASO % 0.6 % (0.0-2.0); EOS # 0.2 K/uL (0.0-0.7); EOS % 1.8 % (0.0-4.0); HEMOGLOBIN 15.2 g/dL (12.0-18.0); LYMPH # 2.4 K/uL (1.0-4.3); LYMPH % 26.3 % (20.0-40.0); MEAN CELL VOLUME 92.1 fL (80.0-94.0); MEAN CORPUSCULAR HEMOGLOBIN 30.6 pg (27.0-31.0); MEAN CORPUSCULAR HGB CONC 33.2 g/dL (33.0-37.0); MEAN PLATELET VOLUME 9.1 fL (7.2-11.7); MONO % 11.5 % (0.0-10.0); NEUT # 5.4 K/uL (1.8-7.0); NEUT % 59.8 % (50.0-75.0); NRBC % 0.1 % (0.0-2.0); RBC 4.97 Mil/uL (4.40-5.90)
[2018-04-28 08:25] LABS: SQUAMOUS EPITHIAL 2 /hpf (0-5); URINE BILIRUBIN NEGATIVE (NEGATIVE); URINE BLOOD NEGATIVE (NEGATIVE); URINE CLARITY Clear (Clear); URINE COLOR Yellow (YELLOW); URINE GLUCOSE (UA) NORMAL (Normal); URINE LEUKOCYTE ESTERASE TRACE Leu/uL (Negative); URINE PROTEIN NEGATIVE (NEGATIVE); URINE UROBILINOGEN NORMAL mg/dL (0.2-1.0)
[2018-04-28 08:37] LABS: ALB/GLOB RATIO 1.2 (1.0-2.1); ALBUMIN 3.9 g/dL (3.5-5.0); ALT/SGPT 37 U/L (21-72); AST/SGOT 29 U/L (17-59); BLOOD UREA NITROGEN 24 mg/dL (9-20); CALCIUM 9.3 mg/dl (8.6-10.4); GFR NON-AFRICAN AMERICAN > 60; LIPASE 54 U/L (23-300)
[2018-04-28] MEDS ORDERED: Iodixanol 320 MG/ML 100 ML BOTTLE IV ONE (09:39)
--- NOTE | 2018-04-28 10:41 | CT ---
Date of service: 04/28/2018 PROCEDURE: CT Abdomen and Pelvis with contrast HISTORY: LLQ pain COMPARISON: 04/10/2018. TECHNIQUE: CT scan of the abdomen and pelvis was performed after administration of intravenous contrast. Oral contrast was not administered. Coronal and sagittal reformatted images were obtained. Contrast dose: 100 mL Visipaque Radiation dose: Total exam DLP = 1395.91 mGy-cm. This CT exam was performed using one or more of the following dose reduction techniques: Automated exposure control, adjustment of the mA and/or kV according to patient size, and/or use of iterative reconstruction technique. FINDINGS: LOWER THORAX: There is dependent atelectasis in the lung bases. LIVER: Normal in size. Fatty liver homogeneous enhancement. No gross lesion or ductal dilatation. GALLBLADDER AND BILE DUCTS: Well distended. No calcified gallstones, wall thickening or pericholecystic fluid. PANCREAS: Normal in size with homogeneous enhancement. No gross lesion or ductal dilatation. SPLEEN: Normal in size and appearance. ADRENALS: No discrete nodule. KIDNEYS AND URETERS: The right kidney is normal l in size with homogeneous enhancement. No hydronephrosis. No solid mass. The left kidney is absent. VASCULATURE: No aortic aneurysm. BOWEL: Evaluation of the bowel is limited in the absence of oral contrast. The small bowel loops are normal in caliber. Scattered left colonic diverticulosis without CT evidence for acute diverticulitis. The colon is grossly normal in appearance. No bowel wall thickening or obstruction. APPENDIX: Normal appendix. PERITONEUM: No free fluid. No free air. LYMPH NODES: No enlarged lymph nodes. BLADDER: Well distended and normal in appearance. REPRODUCTIVE: The prostate gland is normal in size. BONES: No acute fracture. Within normal limits for the patient's age. Stable sclerotic focus in the right acetabulum statistically most compatible with a bone island OTHER FINDINGS: Small right fat containing inguinal hernia. Large left fat containing inguinal hernia. IMPRESSION: No acute abdominal or pelvic abnormality. Scattered left colonic diverticulosis without CT evidence for acute diverticulitis. Large left fat containing inguinal hernia. Fatty liver.
[2018-04-28 11:01] VITALS: BP 131/85; PULSE 56; RESP 20; TEMP 97.8
== END 2018-04-28 11:22 | disposition home or self-care (01) ==
LOC: C.ER 07:09
DX: K40.90 Unilateral inguinal hernia, without obstruction or gangrene, not specified as recurrent (principal); R10.9 Unspecified abdominal pain; I10 Essential (primary) hypertension
CPT/HCPCS: 74177; 80053; 81001; 83690; 85025; 87086; 96361; 96374; 96375; 99285; J2270; J2405; J7030; Q9967

== ENCOUNTER 2018-05-19 21:08 | Inpatient (IN) | payer SELFPAY ==
--- NOTE | 2018-05-19 21:44 | C.PDOC ---
History Of Present Illness 68 year old male presents to the ED for evaluation. Patient states that this morning while walking to the kitchen patient reports suddenly hearing a sound in both his ears that he describes as "a million crickets". Patient states sound was associated with pain that radiates from his right eye to his forehead and parietal scalp. Patient states sounds was constant but later on started diminishing. Patient states at the same time he had "slacking looseness" of his lower jaw with some slurring of the speech. Patient states he had trouble speaking. Patient states the symptoms lasted 1-2 hours but then gradually subsided. Patient states he had mild tinnitus in the past. Patient denies visual changes, fever, chills, nausea, vomit, neck pain, injury, fall, trauma, weakness, numbness. Time Seen by Provider: 05/19/18 21:27 Chief Complaint (Nursing): Headache History Per: Patient History/Exam Limitations: no limitations Onset/Duration Of Symptoms: Days Current Symptoms Are (Timing): Still Present Quality: Other Recent travel outside of the [facility]: No Additional History Per: Patient Past Medical History Reviewed: Historical Data, Nursing Documentation, Vital Signs Vital Signs: Last Vital Signs Temp 97.9 F 05/19/18 21:13 Pulse 48 L 05/19/18 21:13 Resp 18 05/19/18 21:13 BP 121/79 05/19/18 21:13 Pulse Ox 98 05/19/18 21:13 - Medical History PMH: Anxiety, Hiatal Hernia, HTN, Sleep Apnea Denies: Chronic Kidney Disease Surgical History: No Surg Hx Family History: States: Unknown Family Hx - Social History Hx Tobacco Use: No Hx Alcohol Use: No Hx Substance Use: No - Immunization History Hx Tetanus Toxoid Vaccination: No Hx Influenza Vaccination: No Hx Pneumococcal Vaccination: No Review Of Systems Constitutional: Negative for: Fever, Chills Eyes: Negative for: Vision Change Cardiovascular: Negative for: Chest Pain Respiratory: Negative for: Shortness of Breath Gastrointestinal: Negative for: Nausea, Vomiting, Abdominal Pain Skin: Negative for: Rash Neurological: Negative for: Weakness, Numbness, Headache, Dizziness Physical Exam - Physical Exam Appears: Non-toxic, No Acute Distress Skin: Normal Color, Warm, Dry Head: Atraumatic, Normacephalic Eye(s): bilateral: Normal Inspection, PERRL, EOMI Ear(s): Bilateral: Normal Neck: Normal ROM, Supple Chest: Symmetrical Cardiovascular: Rhythm Regular Respiratory: Normal Breath Sounds, No Rales, No Rhonchi, No Wheezing Gastrointestinal/Abdominal: Soft, No Tenderness, No Guarding, No Rebound Extremity: Normal ROM, No Tenderness, No Swelling Neurological/Psych: Oriented x3, Normal Speech, Normal Cognition, Normal Motor, Normal Sensation Gait: Steady ED Course And Treatment - Laboratory Results Result Diagrams: 05/19/18 22:10 05/19/18 22:10 Lab Interpretation: No Acute Changes ECG: Interpreted By Me ECG Rhythm: Sinus Bradycardia ECG Interpretation: No Acute Changes O2 Sat by Pulse Oximetry: 98 (ON RA) Pulse Ox Interpretation: Normal - CT Scan/US CT head Other Rad Studies (CT/US): Read By Radiologist, Radiology Report Reviewed CT/US Interpretation: EXAM: CT Head without Intravenous Contrast. CLINICAL HISTORY: Headache,slurred speech. sa. TECHNIQUE: Axial computed tomography images of the head/brain without intravenous contrast. 1169 mGy-cm. COMPARISON: None provided. FINDINGS: BRAIN. 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 VENTRICLES: There is generalized parenchymal atrophy noted as demonstrated by symmetrical dilatation of ventricl es and sulci. ORBITS: The orbits are unremarkable. SINUSES AND MASTOIDS: The paranasal sinuses and mastoid air cells are clear. BONES: No fracture. SOFT TISSUES: Unremarkable. MISCELLANEOUS: No acute intracranial pathology. IMPRESSION: 1. There is generalized parenchymal atrophy noted as demonstrated by symmetrical dilatation of ventricles and sulci. 2. 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 3. No acute intracranial pathology. . Electronically signed on May 19, 2018 10:26:42 PM EST by: Pj Fam M.D., MANJU Certified By ABR & CBCCT. Fellowship Trained MRI and CT Specialist Reevaluation Time: 23:16 Reassessment Condition: Unchanged - Physician Consult Information Time Consulting Physician Contacted: 23:16 Physician Contacted: Angelic Rdz Outcome Of Conversation: [facility] with possible TIA for additional testing. Medical Decision Making Medical Decision Making: Plan: * Labs * CT head * EKG * CXR * IV fluids Disposition - Disposition Disposition: HOSPITALIZED Disposition Time: 23:18 Condition: STABLE - POA Present On Arrival: None - Clinical Impression Clinical Impression: TIA (transient ischemic attack) - Scribe Statement The provider has reviewed the documentation as recorded by the Scribe Gray Stacy All medical record entries made by the Minhibtevin were at my direction and personally dictated by me. I have reviewed the chart and agree that the record accurately reflects my personal performance of the history, physical exam, medical decision making, and the department course for this patient. I have also personally directed, reviewed, and agree with the discharge instructions and disposition.
[2018-05-19] MEDS ORDERED: Sodium Chloride 0.9% 1,000 ML IV SCH (21:45)
[2018-05-19] MEDS ORDERED: Sodium Chloride 0.9% 1,000 ML ONE (21:50)
[2018-05-19 22:13] LABS: BASO # 0.1 K/uL (0.0-0.2); BASO % 0.9 % (0.0-2.0); EOS # 0.2 K/uL (0.0-0.7); EOS % 2.4 % (0.0-4.0); HEMOGLOBIN 15.2 g/dL (12.0-18.0); LYMPH # 1.9 K/uL (1.0-4.3); LYMPH % 25.9 % (20.0-40.0); MEAN CELL VOLUME 91.5 fL (80.0-94.0); MEAN CORPUSCULAR HEMOGLOBIN 29.6 pg (27.0-31.0); MEAN CORPUSCULAR HGB CONC 32.4 g/dL (33.0-37.0); MEAN PLATELET VOLUME 9.4 fL (7.2-11.7); MONO % 13.2 % (0.0-10.0); NEUT # 4.2 K/uL (1.8-7.0); NEUT % 57.6 % (50.0-75.0); RBC 5.13 Mil/uL (4.40-5.90); RED CELL DISTRIBUTION WIDTH 14.5 % (11.5-14.5); WHITE BLOOD COUNT 7.3 K/uL (4.8-10.8)
[2018-05-19 22:27] LABS: ALB/GLOB RATIO 1.3 (1.0-2.1); ALBUMIN 4.2 g/dL (3.5-5.0); ALT/SGPT 28 U/L (21-72); AST/SGOT 45 U/L (17-59); BLOOD UREA NITROGEN 19 mg/dL (9-20); GFR NON-AFRICAN AMERICAN > 60
[2018-05-19 22:38] LABS: PROTHROMBIN TIME 11.4 SECONDS (9.7-12.2)
[2018-05-20 01:41] VITALS: RESP 20; O2SAT 95
[2018-05-20 06:07] VITALS: TEMP 98.2
[2018-05-20 08:30] VITALS: BP 131/73; PULSE 59
--- NOTE | 2018-05-20 08:46 | CT ---
Date of service: 05/19/2018 PROCEDURE: CT HEAD WITHOUT CONTRAST. HISTORY: headache, tinnitus, slurred speech COMPARISON: 09/12/2013. TECHNIQUE: Axial computed tomography images were obtained through the head/brain without intravenous contrast. Radiation dose: Total exam DLP = 1169.12 mGy-cm. This CT exam was performed using one or more of the following dose reduction techniques: Automated exposure control, adjustment of the mA and/or kV according to patient size, and/or use of iterative reconstruction technique. FINDINGS: HEMORRHAGE: No intracranial hemorrhage. BRAIN: There are mild chronic microangiopathic changes. There is no mass, mass effect or abnormal extra-axial fluid collection. There is no territorial infarction. The midline sagittal structures are normal. VENTRICLES: There is mild age-related global parenchymal volume loss and proportionate enlargement of the ventricles and cortical sulci. CALVARIUM: There is no calvarial fracture or extracranial soft tissue swelling. PARANASAL SINUSES: Predominantly clear. MASTOID AIR CELLS: Predominantly clear. OTHER FINDINGS: None. IMPRESSION: No acute intracranial abnormality. Mild chronic microangiopathic changes and mild age-related global parenchymal volume loss. A preliminary report was provided by [employer] [facility].
--- NOTE | 2018-05-20 09:45 | RAD ---
Date of service: 05/19/2018 HISTORY: Code Stroke COMPARISON: 08/09/2016. FINDINGS: LUNGS: The lungs are well inflated and clear. PLEURA: No pleural effusions or pneumothorax. CARDIOVASCULAR: The heart is normal in size. No aortic atherosclerotic calcification present. OSSEOUS STRUCTURES: Within normal limits for the patient's age. VISUALIZED UPPER ABDOMEN: Normal. OTHER FINDINGS: None. IMPRESSION: No active pulmonary disease.
[2018-05-20] MEDS ORDERED: Pantoprazole 40 mg EC Tab PO SCH (10:00)
--- NOTE | 2018-05-20 18:27 | CARD ---
APPROVED REPORT Date of service: 05/19/2018 EKG Measurement Heart [id number] <Conclusion> Sinus bradycardia Otherwise normal ECG
[2018-05-21] MEDS ORDERED: Influenza Vaccine 60 MCG/0.5 ML SYR (3 yr & up) IM ONE (10:00)
--- NOTE | 2018-05-21 16:29 | CARD ---
APPROVED REPORT Date of service: 05/20/2018 EXAM: Two-dimensional and M-mode echocardiogram with Doppler and color Doppler. Other Information Quality : GoodRhythm : INDICATION CVA/TIA RISK FACTORS Hypertension Obesity Smoking 2D DIMENSIONS IVSd1.3 (0.7-1.1cm)Aortic Root (2D)3.3 (2.0-3.7cm) LVDd5.0 (3.9-5.9cm)PWd1.3 (0.7-1.1cm) LA Plnjbb90 (18-58mL)LVDs2.4 (2.5-4.0cm) FS (%) 52.5 %LVEF (%)83.4 (>50%) LVEF (Melvin's)71.22 %IVC0.00 cm M-Mode DIMENSIONS RVDd2.12 (2.1-3.2cm)Left Atrium (MM)4.74 (2.5-4.0cm) IVSd1.01 (0.7-1.1cm)Aortic Root3.23 (2.2-3.7cm) LVDd5.76 (4.0-5.6cm)Aortic Cusp Exc.2.32 (1.5-2.0cm) PWd0.94 (0.7-1.1cm)FS (%) 56 % LVDs2.53 (2.0-3.8cm)LVEF (%)86 (>50%) Mitral Valve MV E Uusmtdac013.4cm/sMV A Labxyetb36.2cm/sE/A ratio1.2 TDI Lateral E' Peak V9.90cm/sMedial E' Peak V8.48cm/sE/Lateral E'10.5 E/Medial E'12.3 Tricuspid Valve TR Peak Aaoqstnm785kh/sTR Peak Gr.[id number] LEFT VENTRICLE The Left Ventricle is borderline dilated. There is mild concentric left ventricular hypertrophy. Left ventricle systolic function is normal. The Ejection Fraction is >70%. There is normal LV segmental wall motion. The left ventricular diastolic function is normal. RIGHT VENTRICLE The right ventricle is normal size. There is normal right ventricular wall thickness. The right ventricular systolic function is normal. ATRIA The left atrium is mildly dilated. The right atrium size is normal. The interatrial septum is intact with no evidence for an atrial septal defect. AORTIC VALVE The aortic valve is normal in structure. No aortic regurgitation is present. There is no aortic valvular stenosis. MITRAL VALVE The mitral valve is normal in structure. There is no evidence of mitral valve prolapse. There is no mitral valve stenosis. Mitral regurgitation is mild. TRICUSPID VALVE The tricuspid valve is normal in structure. There is mild tricuspid regurgitation. Right ventricular systolic pressure is estimated at 30-40 mmHg. There is mild pulmonary hypertension. PULMONIC VALVE The pulmonic valve is not well visualized. There is mild pulmonic valvular regurgitation. GREAT VESSELS The aortic root is normal in size. PERICARDIAL EFFUSION There is no significant pericardial effusion. <Conclusion> Left ventricle systolic function is normal. The Ejection Fraction is >70%. Hypertensive heart disease. No aortic regurgitation is present. Mitral regurgitation is mild. There is mild tricuspid regurgitation. There is mild pulmonary hypertension. There is mild pulmonic valvular regurgitation.
== END 2018-05-20 10:39 | disposition left against medical advice (07) | DRG 69 ==
LOC: C.ER 21:08 → C.9E 23:19 → C.6T 23:47
PROVIDERS: ADMIT Internal Medicine; ATTEND Internal Medicine
DX: G45.9 Transient cerebral ischemic attack, unspecified (principal); G47.30 Sleep apnea, unspecified; I10 Essential (primary) hypertension; F41.9 Anxiety disorder, unspecified

== ENCOUNTER 2018-08-27 01:58 | Emergency (ER) | payer SELFPAY ==
[2018-08-27 02:49] LABS: BASO % 0.6 % (0.0-2.0); EOS # 0.2 K/uL (0.0-0.7); EOS % 3.2 % (0.0-4.0); HEMOGLOBIN 15.5 g/dL (12.0-18.0); LYMPH # 2.2 K/uL (1.0-4.3); LYMPH % 30.5 % (20.0-40.0); MEAN CELL VOLUME 92.3 fL (80.0-94.0); MEAN CORPUSCULAR HEMOGLOBIN 30.4 pg (27.0-31.0); MEAN CORPUSCULAR HGB CONC 32.9 g/dL (33.0-37.0); MEAN PLATELET VOLUME 9.3 fL (7.2-11.7); MONO % 14.1 % (0.0-10.0); NEUT # 3.8 K/uL (1.8-7.0); NEUT % 51.6 % (50.0-75.0); RBC 5.11 Mil/uL (4.40-5.90); RED CELL DISTRIBUTION WIDTH 14.8 % (11.5-14.5); WHITE BLOOD COUNT 7.3 K/uL (4.8-10.8)
[2018-08-27 02:59] LABS: ALB/GLOB RATIO 1.4 (1.0-2.1); ALT/SGPT 41 U/L (21-72); AST/SGOT 32 U/L (17-59); BLOOD UREA NITROGEN 23 mg/dL (9-20); CALCIUM 9.2 mg/dl (8.6-10.4); GFR NON-AFRICAN AMERICAN > 60
--- NOTE | 2018-08-27 03:49 | C.PDOC ---
History Of Present Illness 68 year old male presents to the ED c/o left sided non radiating chest pain that woke him from sleep. Patient describes his chest pain as "pinching sensation" to his left breast. Patient denies fever, chills, rash, chest pressure, SOB, palpitations, weakness, numbness. Time Seen by Provider: 08/27/18 02:40 Chief Complaint (Nursing): Chest Pain History Per: Patient History/Exam Limitations: no limitations Onset/Duration Of Symptoms: Hrs Current Symptoms Are (Timing): Still Present Quality: Other (Pinching) Recent travel outside of the [place]: No Additional History Per: Patient Past Medical History Reviewed: Historical Data, Nursing Documentation, Vital Signs Vital Signs: Last Vital Signs Temp 98.1 F 08/27/18 02:22 Pulse 72 08/27/18 02:22 Resp 18 08/27/18 02:22 BP 145/84 08/27/18 02:22 Pulse Ox 95 08/27/18 02:22 - Medical History PMH: Anxiety, Hiatal Hernia, HTN, Sleep Apnea Denies: Chronic Kidney Disease Surgical History: No Surg Hx Family History: States: Unknown Family Hx - Social History Hx Tobacco Use: No Hx Alcohol Use: No Hx Substance Use: No - Immunization History Hx Tetanus Toxoid Vaccination: No Hx Influenza Vaccination: No Hx Pneumococcal Vaccination: No Review Of Systems Constitutional: Negative for: Fever, Chills Eyes: Negative for: Vision Change Cardiovascular: Positive for: Chest Pain. Negative for: Palpitations Respiratory: Negative for: Shortness of Breath Gastrointestinal: Negative for: Nausea, Vomiting, Abdominal Pain Skin: Negative for: Rash Neurological: Negative for: Weakness, Numbness, Headache, Dizziness Physical Exam - Physical Exam Appears: Non-toxic, No Acute Distress Skin: Normal Color, Warm, Dry Head: Atraumatic, Normacephalic Eye(s): bilateral: Normal Inspection Neck: Normal ROM, Supple Chest: Symmetrical Cardiovascular: Rhythm Regular Respiratory: No Rales, No Rhonchi, No Wheezing, Other (Poor inspiratory effort) Gastrointestinal/Abdominal: Soft, No Tenderness Extremity: Normal ROM, No Tenderness, Pedal Edema (bilateral pitting), Capillary Refill (< 2 seconds) Neurological/Psych: Oriented x3, Normal Speech, Normal Cognition Gait: Steady ED Course And Treatment - Laboratory Results Result Diagrams: 08/27/18 02:46 08/27/18 02:46 Lab Results: Troponin I < 0.0120 ng/mL (0.00-0.120) 08/27/18 02:46 NT-Pro-B Natriuret Pep 42.0 pg/mL (0-900) 08/27/18 02:59 Total Bilirubin 0.5 mg/dL (0.2-1.3) 08/27/18 02:46 AST 32 U/L (17-59) 08/27/18 02:46 ALT 41 U/L (21-72) 08/27/18 02:46 Alkaline Phosphatase 48 U/L (38-126) 08/27/18 02:46 Total Protein 6.8 g/dL (6.3-8.3) 08/27/18 02:46 Albumin 4.0 g/dL (3.5-5.0) 08/27/18 02:46 Globulin 2.9 gm/dL (2.2-3.9) 08/27/18 02:46 Albumin/Globulin Ratio 1.4 (1.0-2.1) 08/27/18 02:46 ECG: Interpreted By Me, Viewed By Me ECG Rhythm: Sinus Rhythm Interpretation Of ECG: No ST/T wave changes Rate From EC (BPM) O2 Sat by Pulse Oximetry: 95 (On RA) Pulse Ox Interpretation: Normal - Radiology CXR: Interpreted by Me, Viewed By Me CXR Interpretation: Yes: Other (Poor inspiratory effort). No: Infiltrates Progress Note: Plan: - CXR. - EKG. - Labs. - Aspirin 324 mg PO. All labs and CXR/ EKG were reviewed and d/w pt. Pt with comorbid factors , advised observation for serial trop with cariology consult pt refusing admission, states he feels fine now and would like to leave. Pt was explained all risks of doing so including undisgnosed SC leading to . Pt AAOx 3 understand all instructons and risks and signed out AMA. Pt understands he may return anytime for recurrent chest pain and any other concerns. Against Medical Advice - AMA Patient Left Against Medical Advice: The patient declines admission to the hospital and wishes to leave the Emergency Department. This action is against my medical advice. This decision was made with informed refusal. The patient was told that admission to the hospital is necessary. Explanation of the reasons why were discussed. The risks of leaving were explained to the patient and include, but are not limited to, worsening of known or currently unknown conditions, permanent disability and from undiagnosed or untreated conditions. The patient has the capacity to make this informed decision and understands my explanation of the current medical problem and risks of leaving. The patient voluntarily accepts these risks and signed an AMA form documenting our conversation. The patient was given the opportunity to ask questions and reconsider. The patient was encouraged to return to the Emergency Department at any time for further care. 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 - Scribe Statement The provider has reviewed the documentation as recorded by the Scribe Gray Stacy All medical record entries made by the Scribe were at my direction and personally dictated by me. I have reviewed the chart and agree that the record accurately reflects my personal performance of the history, physical exam, medical decision making, and the department course for this patient. I have also personally directed, reviewed, and agree with the discharge instructions and disposition.
[2018-08-27 04:59] VITALS: BP 146/89; PULSE 67; RESP 16; TEMP 97.9; O2SAT 97
--- NOTE | 2018-08-27 12:42 | RAD ---
Date of service: 08/27/2018 HISTORY: pain, chest COMPARISON: Comparison is made with 05/19/2018 TECHNIQUE: 1 view obtained. FINDINGS: LUNGS: Small opacities at the lung bases likely atelectasis. Suboptimal evaluation due to portable technique. PLEURA: No significant pleural effusion identified, no pneumothorax apparent. CARDIOVASCULAR: No aortic atherosclerotic calcification present. Normal cardiac size. No pulmonary vascular congestion. OSSEOUS STRUCTURES: No significant abnormalities. VISUALIZED UPPER ABDOMEN: Normal. OTHER FINDINGS: None. IMPRESSION: Small opacities at the lung bases likely atelectasis.
== END 2018-08-27 05:04 | disposition left against medical advice (07) ==
LOC: C.ER 01:58
DX: R07.9 Chest pain, unspecified (principal)